=== PATIENT | male | born 1980 | race Caucasian/White ===

== ENCOUNTER 2023-01-10 07:33 | Day surgery (SDC) | payer OTHER, SELFPAY ==
[2023-01-10] VITALS (23 sets, daily range): BP systolic 112–150; BP diastolic 66–99; PULSE 57–86; RESP 10–18; TEMP 36.3–36.4; O2SAT 99–100
--- NOTE | ~2023-01-10 | CT_ITS ---
EXAMINATION: CT abdomen pelvis w con DATE: 01/10/2023 08:41 INDICATION: Right lower quadrant pain TECHNIQUE: Computed tomography (CT) of the abdomen and pelvis was performed with 100 cc Omnipaque 350 intravenous contrast. The dose-length product was 586.77 mGy-cm. Automated exposure control and iter ative reconstruction technique were employed. COMPARISON: None. FINDINGS: Lung bases are unremarkable. Heart size normal. No significant pleural or pericardial effus ion. The liver, spleen, pancreas, adrenal glands are unremarkable. There are small subcentimeter hypo densities of the kidneys, most likely benign. Gallbladder is present. There are surgical clips in the left abdomen. Nonobstructive bowel gas pattern. The appendix is thickened and enhancing with mild pe riappendiceal infiltration, consistent with acute uncomplicated appendicitis. No evidence for perfora tion or abscess. No significant vascular abnormality. No lymphadenopathy. No abnormal pelvic masses o r fluid collections. Bladder is unremarkable. No acute osseous abnormality. IMPRESSION: 1. Acute uncomplicated appendicitis. Reviewed, dictated and finalized at location A.
--- NOTE | 2023-01-10 07:57 | ED.ABDPAIN ---
HPI - Abdominal Pain General Chief Complaint: Abdominal Pain Stated Complaint: abd pain Time Seen by Provider: 01/10/23 07:57 Source: patient Mode of arrival: ambulatory Limitations: no limitations History of Present Illness HPI narrative: 42 years old white male drove himself to the emergency room because of pain across the abdomen that started yesterday, currently localized to the right lower quadrant. Worse with movement better at rest, he denies any fever, chills, nausea, vomiting, trouble urinating. History of surgery for varicocele. He does not smoke, and drinks almost daily. Related Data Allergies Allergy/AdvReac Type Severity Reaction Status Date / Time No Known Allergies Allergy Unverified 01/08/17 19:55 Review of Systems Review of Systems: All systems reviewed & are unremarkable except as noted in HPI and below Exam Narrative: General appearance: Well-developed, well-nourished Skin: Normal color Head: Normocephalic, nontraumatic Eyes: Clear conjunctiva ENT: Oropharynx normal, ears normal, nose normal Neck: Supple, nontender Chest and respiratory: Airway patent, no respiratory distress, no accessory muscle use Heart: Regular rate/rhythm Abdomen: Soft, diffuse right lower quadrant tenderness, no organomegaly, quiet bowel sounds Vascular: Normal peripheral pulses, normal capillary refill. Musculoskeletal: Normal range of motion, nontender back Neurologic: Alert and oriented ?3, QUANTITATIVE STRATEGY ANALYST is normal as tested, no gross motor deficit Course Reevaluation(s) Reevaluation #1: Currently is pain free after 0.5 of Dilaudid IV. Patient is going to the OR right now and the plan to discharge after surgery. Discussed with Dr. Tillman Date: 01/10/23 Time: 10:48 Consultations Consultation #1: Dr. Tillman Date: 01/10/23 Time: 10:54 Vital Signs Vital signs: Vital Signs Pulse Rate 86 01/10/23 07:50 Respiratory Rate 17 01/10/23 07:50 Pulse Oximetry 100 01/10/23 07:50 Temperature 36.4 C 01/10/23 09:00 Pulse Rate 69 01/10/23 09:50 Respiratory Rate 16 01/10/23 09:50 Blood Pressure 131/82 01/10/23 10:01 Pulse Oximetry 100 01/10/23 09:50 Oxygen Delivery Room Air 01/10/23 07:56 MDM - Abdominal Pain MDM Narrative Medical decision making narrative: Patient presents with right lower quadrant pain started yesterday, Physical examination showed diffuse tenderness and guarding right lower quadrant. IV normal saline, morphine 4 mg IV, Zofran milligrams IV ordered. Differential diagnosis acute appendicitis, kidney stone, urinary tract infection, cholecystitis, constipations are my concern. Blood work-up showed normal white count of 8.0 normal chemistry, clean urine. CT abdomen and pelvis with IV contrast showed acute uncomplicated appendicitis. 3.375 mg of Zosyn IV given. Patient is going to the OR right now discussed with Dr. Tillman. Last meal was 7 PM last night Lab Data 01/10/23 08:08 01/10/23 08:08 Labs: Lab Results 01/10/23 01/10/23 01/10/23 Range/Units 08:08 08:08 08:08 WBC 8.0 (4.5-10.0) K/mm3 RBC 4.55 L (4.6-6.20) M/mm3 Hgb 15.1 (14.0-18.0) g/dL Hct 43.5 (42.0-52.0) % MCV 95.6 (80-100) fl MCH 33.2 (26-34) pg MCHC 34.7 (32-36) g/dl RDW 12.6 (11.5-14.5) % Plt Count 231 (150-375) k/mm3 MPV 9.9 (7.4-10.4) fl Immature Gran % (Auto) 0.2 (0-0.5) % Neut % (Auto) 73.5 H (45.5-73.1) % Lymph % (Auto) 17.3 L (18.3-44.2) % [place] % (Auto) 7.4 (2.6-8.5) % Eos % (Auto) 1.4 (0-4.4) % Baso % (Auto) 0.2 (0.2-1.2) % Lymph # (Auto) 1.39 (0.9-3.2) K/mm3 [place] # (Auto) 0.6 (0.1-0.6) K/mm3 Eos # (Auto) 0.1 (0
[2023-01-10 08:19] LABS: Basophils Percent Auto 0.2 % (0.2-1.2); Eosinophils Absolute Auto 0.1 K/mm3 (0-0.3); Eosinophils Percent Auto 1.4 % (0-4.4); Hematocrit 43.5 % (42.0-52.0); Hemoglobin 15.1 g/dL (14.0-18.0); Immature Granulocyte Absolute 0.02 K/mm3 (0.00-0.031); Immature Granulocyte Percent A 0.2 % (0-0.5); Lymphocytes Absolute Auto 1.39 K/mm3 (0.9-3.2); Lymphocytes Percent Auto 17.3 % (18.3-44.2); Mean Corpuscular HGB Conc 34.7 g/dl (32-36); Mean Corpuscular Hemoglobin 33.2 pg (26-34); Mean Corpuscular Volume 95.6 fl (80-100); Mean Platelet Volume 9.9 fl (7.4-10.4); Monocytes Absolute Auto 0.6 K/mm3 (0.1-0.6); Monocytes Percent Auto 7.4 % (2.6-8.5); Neutrophils Absolute Auto 5.9 K/mm3 (1.3-6.7); Neutrophils Percent Auto 73.5 % (45.5-73.1); Platelet Count Result 231 k/mm3 (150-375); Red Blood Count 4.55 M/mm3 (4.6-6.20); Red Cell Distribution Width 12.6 % (11.5-14.5)
[2023-01-10] MEDS: SODIUM CHLORIDE 0.9% IV 1,000 ML 999 ML IV CONT (08:22)
[2023-01-10] MEDS: ONDANSETRON INJ 4 MG/2 ML VIAL IV PUSH (08:24)
[2023-01-10 08:26] LABS: Appearance Urine Clear (Clear); Bilirubin Urine Negative (Negative); Blood Urine Negative (Negative); Color Urine Yellow (Yellow); Glucose Urine UA Negative (Negative); Ketones Urine Negative (Negative); Leukocyte Esterase Ur Negative LEU/UL (Negative); Nitrate Urine Negative (Negative); Protein Urine Negative (Negative); Specific Grav Ur 1.012 (1.001-1.035); Urobilinogen Urine 0.2 mg/dL (<2.0); pH Urine 7.5 (5.0-9.0)
[2023-01-10] MEDS: MORPHINE SULFATE (*CRX) 4 MG/ML INJ IV PUSH (08:26)
[2023-01-10 08:29] LABS: Alanine Aminotransferase 29 U/L (6-50); Albumin Level 4.9 g/dL (3.5-5.1); Alkaline Phosphatase 64 U/L (38-126); Anion Gap 6 mmol/L (8-16); Aspartate Amino Transferase 24 U/L (17-59); Bilirubin,Total 0.9 mg/dL (0.2-1.3); Blood Urea Nitrogen 16 mg/dL (9-20); Calcium 9.2 mg/dL (8.4-10.2); Carbon Dioxide 30 mmol/L (22-30); Chloride 102 mmol/L (98-107); Estimated CRCL calculation 77 ml/min; Estimated Glomerular Filt Rate > 60; Glucose 113 mg/dL (65-110); Lipase 44 U/L (23-300); Potassium 4.8 mmol/L (3.4-5.0); Sodium 138 mmol/L (137-145)
[2023-01-10 08:50] LABS: Add Urine Microscopic? NO
--- NOTE | 2023-01-10 10:26 | PC.NURSE ---
Dr. Campbell advised to give 0.5 of hydromorphone IVP for pain for the patient.
[2023-01-10] MEDS: HYDROmorphone HCL INJ (*CRX) 1 MG/ML SYR 0.5 MG IV PUSH (10:32)
--- NOTE | 2023-01-10 11:05 | PM.SD2 ---
Same Day Admit/Disch: HPI History of Present Illness Chief complaint: Appendicitis Narrative: Pedro Dupree is a 42 year old male presented to the emergency room today with history of pain across his mid abdomen that started yesterday. Pain gradually moved to the right lower quadrant and became more severe. He was seen in the emergency room and noted to have tenderness in the right lower quadrant. He had a normal white count. CT scan however showed acute appendicitis. After discussion, patient agrees to proceed with laparoscopic appendectomy. [facility] Past Medical History Medical History Anxiety Same Day Admit/Disch: Med Pre-admit Medications Home Medications Medication Instructions Recorded Confirmed Type buspirone 10 mg tablet 10 mg PO BID 01/10/23 01/10/23 History ketorolac 10 mg tablet 10 mg PO Q6H 4 days #16 tabs 01/10/23 Rx oxycodone-acetaminophen 5 mg-325 0.5 - 1 tablet PO Q6H PRN pain #10 01/10/23 Rx mg tablet tabs Exam Const: General: comfortable, no acute distress, alert and awake HENMT: Head: normocephalic and atraumatic Mouth: Yes Normal oral and palatal mucosa present Eyes: Conjunctivae: conjunctivae normal Pupils: Equal, round and reactive pupils present EOM: EOMs intact bilaterally Neck: Neck: normal visual inspection, no lymphadenopathy and nontender Resp: Effort & Inspection: normal respiratory effort Auscultation: clear to auscultation bilaterally Cardio: Rate: regular rate Rhythm: regular rhythm Heart sounds: no gallops, no murmurs and no rubs GI: Inspection: normal to inspection and non-distended GI Palp: Yes Soft to palpation, Yes Tenderness to palpation present (GI) (Diffuse but worse in the right lower quadrant with guarding), Yes Guarding due to palpation present (GI), No Hepatomegaly present, No Splenomegaly present, No Hernia present and No Palpable mass present Auscultation: normal bowel sounds Skin: Lesions: no lesions Rashes: no rashes Neuro: General: no focal motor deficits and CN's II-XI intact bilaterally Cranial nerves: Yes Equal, round and reactive pupils present, Yes Bilaterally intact EOM present, Yes facial symmetry and Yes Midline tongue present Speech: normal speech Motor exam (neuro): 5/5 motor strength present throughout and Motor abnormalities not present Extrem: General: no clubbing, cyanosis or edema and edema Psych: Affect: normal affect Thought process: Normal thought process present Insight: Good insight present (Psych) DS: Data Data Completed and Pending Labs on day of discharge: Labs from last 24 hours 01/10/23 01/10/23 01/10/23 08:08 08:08 08:08 WBC 8.0 RBC 4.55 L Hgb 15.1 Hct 43.5 MCV 95.6 MCH 33.2 MCHC 34.7 RDW 12.6 Plt Count 231 MPV 9.9 Immature Gran % (Auto) 0.2 Neut % (Auto) 73.5 H Lymph % (Auto) 17.3 L [place] % (Auto) 7.4 Eos % (Auto) 1.4 Baso % (Auto) 0.2 Lymph # (Auto) 1.39 [place] # (Auto) 0.6 Eos # (Auto) 0.1 Baso # (Auto) 0.0 Abs Immat Gran (auto) 0.02 Absolute Neuts (auto) 5.9 Absolute Nucleated RBC 0.0 Nucleated RBC % 0.0 Sodium 138 Potassium 4.8 Chloride 102 Carbon Dioxide 30 Anion Gap 6 L BUN 16 Creatinine 1.20 Estim Creat Clear Calc 77 Estimated GFR > 60 Glucose 113 H Calcium 9.2 Total Bilirubin 0.9 AST 24 ALT 29 Alkaline Phosphatase 64 Total Protein 7.0 Albumin 4.9 Lipase 44 Urine Color Yellow Urine Appearance Clear Urine pH 7.5 Ur Specific [place] 1.012 Urine Protein Negative Urine Glucose (UA) Negative Urine Ketones Negative Ur Blood (Man) Negative Urine Nitrate Negative Urine Bilirubin Negative Urine Urobilinogen 0.2 Leukocyte Esterase Rfl Negative Imaging Attestation: I personally reviewed and interpreted this imaging study as follows: (CT scan of the abdomen pelvis) My
--- NOTE | 2023-01-10 11:09 | WPDHPUPDATE1 ---
History and Physical Update Update Date/Time: 01/10/23 11:09 History and Physical has been reviewed, including an updated exam of the patient. There are NO changes in the patient's condition. Risks, benefits, and alternatives have been discussed and questions answered. Patient agrees to proceed with procedure.
[2023-01-10] MEDS: PIPERACILLN/TAZ 3.375GM/NS50ML 3.375 GM/50 ML BAG IVPB (11:15)
--- NOTE | 2023-01-10 11:31 | WPDANESEPP ---
Anes - Eval Pre Procedure Procedure: Operation Date: 01/10/23 12:00 Proposed Procedures p Laparoscopic Appendectomy - Silverio Tillman MD Date/Time: 01/10/23 11:31 Surgeon: Dr. Tillman Pre Op Diagnosis: Appendicitis Patient Data Age: 42 Gender: M Height: 1.83 m Weight: 90.9 kg Last Vital Signs Temp 36.4 C 01/10/23 09:00 Pulse 76 01/10/23 10:45 Resp 17 01/10/23 10:45 BP 131/82 01/10/23 10:01 Pulse Ox 100 01/10/23 10:45 O2 Del Method Room Air 01/10/23 07:56 Allergies Allergy/AdvReac Type Severity Reaction Status Date / Time No Known Allergies Allergy Unverified 01/08/17 19:55 Laboratory Tests 01/10/23 01/10/23 01/10/23 08:08 08:08 08:08 WBC 8.0 K/mm3 K/mm3 (4.5-10.0) RBC 4.55 M/mm3 L M/mm3 (4.6-6.20) Hgb 15.1 g/dL g/dL (14.0-18.0) Hct 43.5 % % (42.0-52.0) MCV 95.6 fl fl (80-100) MCH 33.2 pg pg (26-34) MCHC 34.7 g/dl g/dl (32-36) RDW 12.6 % % (11.5-14.5) Plt Count 231 k/mm3 k/mm3 (150-375) MPV 9.9 fl fl (7.4-10.4) Immature Gran % (Auto) 0.2 % % (0-0.5) Neut % (Auto) 73.5 % H % (45.5-73.1) Lymph % (Auto) 17.3 % L % (18.3-44.2) [place] % (Auto) 7.4 % % (2.6-8.5) Eos % (Auto) 1.4 % % (0-4.4) Baso % (Auto) 0.2 % % (0.2-1.2) Lymph # (Auto) 1.39 K/mm3 K/mm3 (0.9-3.2) [place] # (Auto) 0.6 K/mm3 K/mm3 (0.1-0.6) Eos # (Auto) 0.1 K/mm3 K/mm3 (0-0.3) Baso # (Auto) 0.0 K/mm3 K/mm3 (0.0-0.1) Abs Immat Gran (auto) 0.02 K/mm3 K/mm3 (0.00-0.031) Absolute Neuts (auto) 5.9 K/mm3 K/mm3 (1.3-6.7) Absolute Nucleated RBC 0.0 K/mm3 K/mm3 (0.0-0.012) Nucleated RBC % 0.0 % % (0.0-0.2) Sodium 138 mmol/L mmol/L (137-145) Potassium 4.8 mmol/L mmol/L (3.4-5.0) Chloride 102 mmol/L mmol/L (98-107) Carbon Dioxide 30 mmol/L mmol/L (22-30) Anion Gap 6 mmol/L L mmol/L (8-16) BUN 16 mg/dL mg/dL (9-20) Creatinine 1.20 mg/dL mg/dL (0.7-1.3) Estim Creat Clear Calc 77 ml/min ml/min Estimated GFR > 60 (59 - ) Glucose 113 mg/dL H mg/dL (65-110) Calcium 9.2 mg/dL mg/dL (8.4-10.2) Total Bilirubin 0.9 mg/dL mg/dL (0.2-1.3) AST 24 U/L U/L (17-59) ALT 29 U/L U/L (6-50) Alkaline Phosphatase 64 U/L U/L (38-126) Total Protein 7.0 g/dL g/dL (6.3-8.2) Albumin 4.9 g/dL g/dL (3.5-5.1) Lipase 44 U/L U/L (23-300) Urine Color Yellow (Yellow) Urine Appearance Clear (Clear) Urine pH 7.5 (5.0-9.0) Ur Specific [place] 1.012 (1.001-1.035) Urine Protein Negative mg/dL mg/dL (Negative) Urine Glucose (UA) Negative mg/dL mg/dL (Negative) Urine Ketones Negative mg/dL mg/dL (Negative) Ur Blood (Man) Negative (Negative) Urine Nitrate Negative (Negative) Urine Bilirubin Negative (Negative) Urine Urobilinogen 0.2 mg/dL mg/dL (<2.0) Leukocyte Esterase Rfl Negative RUSTY/UL RUSTY/UL (Negative) Patient hx anesthesia problems: none Family hx anesthesia problems: none Results Review: All pre-operative results and documents have been reviewed as part of the pre-operative evaluation. Exam Day of Procedure 01/10/23 11:31 Patient weight: normal Heart: regular rate and rhythm Lungs: clear to auscultation Airway: Mallampati scale class 1 Neurological: alert and oriented
--- NOTE | 2023-01-10 11:37 | WPDANESEPPF ---
Anes - Initial Pre Proc Eval Procedure: Operation Date: 01/10/23 12:00 Proposed Procedures p Laparoscopic Appendectomy - Silverio Tillman MD Date/Time: 01/10/23 11:37 Surgeon: Silverio Tillman MD Pre Op Diagnosis: Appendicitis Patient Data Age: 42 Gender: M Height: 1.83 m Weight: 90.9 kg Last Vital Signs Temp 36.4 C 01/10/23 09:00 Pulse 76 01/10/23 10:45 Resp 17 01/10/23 10:45 BP 131/82 01/10/23 10:01 Pulse Ox 100 01/10/23 10:45 O2 Del Method Room Air 01/10/23 07:56 Allergies Allergy/AdvReac Type Severity Reaction Status Date / Time No Known Allergies Allergy Unverified 01/08/17 19:55 Laboratory Tests 01/10/23 01/10/23 01/10/23 08:08 08:08 08:08 WBC 8.0 K/mm3 K/mm3 (4.5-10.0) RBC 4.55 M/mm3 L M/mm3 (4.6-6.20) Hgb 15.1 g/dL g/dL (14.0-18.0) Hct 43.5 % % (42.0-52.0) MCV 95.6 fl fl (80-100) MCH 33.2 pg pg (26-34) MCHC 34.7 g/dl g/dl (32-36) RDW 12.6 % % (11.5-14.5) Plt Count 231 k/mm3 k/mm3 (150-375) MPV 9.9 fl fl (7.4-10.4) Immature Gran % (Auto) 0.2 % % (0-0.5) Neut % (Auto) 73.5 % H % (45.5-73.1) Lymph % (Auto) 17.3 % L % (18.3-44.2) [place] % (Auto) 7.4 % % (2.6-8.5) Eos % (Auto) 1.4 % % (0-4.4) Baso % (Auto) 0.2 % % (0.2-1.2) Lymph # (Auto) 1.39 K/mm3 K/mm3 (0.9-3.2) [place] # (Auto) 0.6 K/mm3 K/mm3 (0.1-0.6) Eos # (Auto) 0.1 K/mm3 K/mm3 (0-0.3) Baso # (Auto) 0.0 K/mm3 K/mm3 (0.0-0.1) Abs Immat Gran (auto) 0.02 K/mm3 K/mm3 (0.00-0.031) Absolute Neuts (auto) 5.9 K/mm3 K/mm3 (1.3-6.7) Absolute Nucleated RBC 0.0 K/mm3 K/mm3 (0.0-0.012) Nucleated RBC % 0.0 % % (0.0-0.2) Sodium 138 mmol/L mmol/L (137-145) Potassium 4.8 mmol/L mmol/L (3.4-5.0) Chloride 102 mmol/L mmol/L (98-107) Carbon Dioxide 30 mmol/L mmol/L (22-30) Anion Gap 6 mmol/L L mmol/L (8-16) BUN 16 mg/dL mg/dL (9-20) Creatinine 1.20 mg/dL mg/dL (0.7-1.3) Estim Creat Clear Calc 77 ml/min ml/min Estimated GFR > 60 (59 - ) Glucose 113 mg/dL H mg/dL (65-110) Calcium 9.2 mg/dL mg/dL (8.4-10.2) Total Bilirubin 0.9 mg/dL mg/dL (0.2-1.3) AST 24 U/L U/L (17-59) ALT 29 U/L U/L (6-50) Alkaline Phosphatase 64 U/L U/L (38-126) Total Protein 7.0 g/dL g/dL (6.3-8.2) Albumin 4.9 g/dL g/dL (3.5-5.1) Lipase 44 U/L U/L (23-300) Urine Color Yellow (Yellow) Urine Appearance Clear (Clear) Urine pH 7.5 (5.0-9.0) Ur Specific [place] 1.012 (1.001-1.035) Urine Protein Negative mg/dL mg/dL (Negative) Urine Glucose (UA) Negative mg/dL mg/dL (Negative) Urine Ketones Negative mg/dL mg/dL (Negative) Ur Blood (Man) Negative (Negative) Urine Nitrate Negative (Negative) Urine Bilirubin Negative (Negative) Urine Urobilinogen 0.2 mg/dL mg/dL (<2.0) Leukocyte Esterase Rfl Negative RUSTY/UL RUSTY/UL (Negative) Patient hx anesthesia problems: none Family hx anesthesia problems: none Results Review: All pre-operative results and documents have been reviewed as part of the pre-operative evaluation. [facility] Past Medical History Medical History Anxiety Anes - Eval Final PreProcedure Day of Procedure 01/10/23 11:37 Patient weight: overweight Heart: regular rate and rhythm Lungs: clear to auscultation Airway: Mallampati scale class II Neurological: alert and oriented Last oral intake: >/= 8 hours ASA classification: II Emergent: yes Anesthetic plan: proceed
[2023-01-10] MEDS: SCOPOLAMINE 1.5 MG PATCH TRANSDERM (11:40)
[2023-01-10] MEDS: LACTATED RINGERS 1,000 ML 30 ML IV CONT ×2 (11:40→13:25)
[2023-01-10] MEDS: BUPIVACAINE/EPINEPHRINE 0.25% 50 ML VIAL 20 ML INFILTRATE (12:11)
--- NOTE | 2023-01-10 12:21 | W.PM.PROC2 ---
Procedure Note - Detailed Date of Procedure 01/10/23 Pre-op Diagnosis Appendicitis Post-op Diagnosis Same Procedure Performed Laparoscopic appendectomy Surgeon Silverio Tillman MD Radiation Control Worker Liang DURANT Anesthesia General and Local (0.25% Marcaine with epinephrine) Indications Patient started having mid abdominal pain day before yesterday. This moved to the right lower quadrant and became worse. He came to the emergency room where he had guarding and tenderness in the right lower quadrant. He had a normal white count. CT scan showed acute appendicitis. He is taken to surgery now for laparoscopic appendectomy. Findings The proximal half of the appendix was normal. The distal half the appendix was consistent with acute appendicitis. No evidence of gangrene or rupture was noted. Description of Procedure Patient was taken to surgery and induced into general anesthesia. The abdomen is prepped and draped. Trocars were placed in the usual fashion using [employer] optical trocars and a 5 mm camera. After insufflation, the patient was placed in Trendelenburg with the right-side elevated. The appendix was found fairly easily. The inflamed distal half the appendix was adherent to the retroperitoneum. We dissected the mesoappendix starting at the appendiceal base. The mesoappendix was very normal here. However as we proceeded distally, there was quite a bit of inflammation in the mesentery to the appendix. Cautery was used. We carefully dissected and freed the mesentery from the distal half of the appendix. We were then able to elevate the appendix entirely. The base the appendix was ligated with a Vicryl endoloop. We amputated the appendix just above the ligature. The appendix was immediately placed in an Endo-Catch bag. It was retrieved through the 10 11 left lower quadrant trocar site. After removal, the trocar was replaced. We reviewed the areas of dissection and the appendiceal stump. All looked good with no evidence of bleeding or other problems. We then evacuated CO2 and removed the trocar sleeves. Skin wounds were closed with subcuticular 4-0 Monocryl skin suture. Wounds were dressed with Exofin surgical adhesive. The patient was awakened and taken to recovery in good condition. Sponge and needle counts were correct x2. Estimated Blood Loss -5 Pathology Yes (Appendix) Complications No immediate complications Condition Stable Disposition PACU [facility] Billing Surgery - Charge Forward: Surgery Billing (Laparoscopic appendectomy)
[2023-01-10] MEDS: fentaNYL CITRATE INJ (*CRX) 100 MCG/2 ML VIAL 25 MCG IV PUSH ×4 (13:25→13:45)
[2023-01-10] MEDS: KETOROLAC 15 MG/ML VIAL (*BKC) IV PUSH (14:53)
== END 2023-01-10 15:35 | disposition home or self-care (01) ==
LOC: ANHED 10:54 → ANHSURGERY 11:16
PROVIDERS: Emergency Provider Emergency Medicine; Visit Provider Surgery
PROC: 0DTJ4ZZ Resection of Appendix, Percutaneous Endoscopic Approach (ICD-10-PCS; CPT 44970; principal; 2023-01-10 12:00)
DX: K35.30 Acute appendicitis with localized peritonitis, without perforation or gangrene (principal); F41.9 Anxiety disorder, unspecified
CPT/HCPCS: 44970; 36415; 74177; 80053; 81003; 83690; 85025; 88304; 96361; 96374; 96375; 99285; A9270; J1100; J1170; J1885; J2250; J2270; J2405; J2543; J2704; J2710; J3010; J7030; J7120; Q9967